=== PATIENT | male | born 1985 | race Caucasian/White ===

== ENCOUNTER 2020-04-12 14:46 | Emergency (ER) | payer OTHER ==
[~2020-04-12] VITALS: Ht 177.8 cm; Wt 122.5 kg
[2020-04-12 14:52] VITALS: BP 147/80
--- NOTE | 2020-04-12 16:00 | NUR ---
NOVEL SWAB DONE AND WALKED TO LAB
--- NOTE | 2020-04-12 16:11 | NUR ---
34YO M BIB SELF C/O SOB, PRODUCTIVE COUGH, CHEST PAIN, FATIGUE X 3 DAYS. DENIES FEVER, N/V/D. UPON ASSESSMENT, AOX4. VSS. HEART RATE NORMAL, REGULAR RHYTHM. CLEAR BREATH SOUNDS. 5/5 STRENGTH ON ALL EXTREMITIES. PT WAITING TO BE SEEN IN TENT. ERMD MADE AWARE OF PT STATUS. PMH: HTN NKA
[2020-04-12 16:40] VITALS: BP 147/80
--- NOTE | 2020-04-12 17:08 | NUR ---
Patient discharged with v/s stable. Written and verbal after care instructions given and explained. Patient alert, oriented and verbalized understanding of instructions. Ambulatory with steady gait. All questions addressed prior to discharge. ID band removed. Patient advised to follow up with PMD. Rx of ALBUTEROL, ACETAMINOPHEN given. Patient educated on indication of medication including possible reaction and side effects. Opportunity to ask questions provided and answered.
== END 2020-04-12 17:08 | disposition home or self-care (01) ==
LOC: MED 14:46
DX: R05 Cough (principal); Z20.822 Contact with and (suspected) exposure to COVID-19; I10 Essential (primary) hypertension
CPT/HCPCS: 71045; 99284; U0003

== ENCOUNTER 2021-11-28 09:20 | Emergency (ER) | payer OTHER ==
[~2021-11-28] VITALS: Ht 177.8 cm; Wt 138.3 kg
[2021-11-28 09:23] VITALS: BP 158/94
[2021-11-28] MEDS ORDERED: ACETAMINOPHEN EXTRA STRENGTH 500 MG TAB PO ONE (09:40)
[2021-11-28] MEDS ORDERED: IBUPROFEN 600 MG TAB PO ONE (09:40)
[2021-11-28] MEDS ORDERED: CIPR7.5S OT (09:45)
[2021-11-28] MEDS ORDERED: AMOX1TAB8 PO (09:45)
[2021-11-28] MEDS ORDERED: NAPR-54 PO (09:46)
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
[2021-11-28 10:06] VITALS: BP 158/94
--- NOTE | 2021-11-28 10:06 | NUR ---
Patient discharged with v/s stable. Written and verbal after care instructions ABOUT OTITIS EXTERNA given and explained. Patient alert, oriented and verbalized understanding of instructions. Ambulatory with steady gait. All questions addressed prior to discharge. ID band removed. Patient advised to follow up with PMD. Rx of AMOX-CLAV [id number], CIPRODEX OTIC SUSUPENSION, NAPROSYN given. Patient educated on indication of medication including possible reaction and side effects. Opportunity to ask questions provided and answered.
== END 2021-11-28 10:06 | disposition home or self-care (01) ==
LOC: MED 09:20
DX: H60.92 Unspecified otitis externa, left ear (principal); I10 Essential (primary) hypertension; Z79.899 Other long term (current) drug therapy
CPT/HCPCS: 99283